=== PATIENT | male | born 1960 | race Caucasian/White ===

== ENCOUNTER 2019-06-05 07:22 | Emergency (ER) | payer OTHER ==
[~2019-06-05] VITALS: Ht 180.3 cm; Wt 88.9 kg
[2019-06-05 07:34] VITALS: Ht 180.3 cm; Wt 88.9 kg
[2019-06-05 08:36] LABS: CALCIUM 8.7 mg/dL (8.5-10.1); CARBON DIOXIDE 24.7 mmol/L (21-32); CHLORIDE SERUM 96 mmol/L (98-107); CREATININE SERUM 1.1 mg/dL (0.7-1.3); GFR1 > 60 mL/min; GLUCOSE SERUM 153 mg/dL (74-106); POTASSIUM SERUM 3.2 mmol/L (3.5-5.1); SODIUM SERUM 135 mmol/L (136-145)
[2019-06-05 08:41] LABS: ALKALINE PHOSPHATASE 113 U/L (46-116); ALT/SGPT 66 U/L (16-63); AST/SGOT 161 U/L (15-37); BILIRUBIN TOTAL 10.03 mg/dL (0.20-1.00); CHOLESTEROL 149 mg/dL (<200); HDL CHOLESTEROL 13 mg/dL (40-60); TOTAL PROTEIN, SERUM 7.8 g/dL (6.4-8.2)
[2019-06-05 08:52] LABS: BASOPHIL % 0.1 % (0-2); PLATELET COUNT 83 x10^3mcL (130-400); RED CELL DISTRIBUTION WIDTH 15.7 % (11.5-14.5)
[2019-06-05 09:27] LABS: microscopic required? NO
[2019-06-05 10:13] LABS: urine erythrocyte NEGATIVE (NEGATIVE)
[2019-06-05 11:20] VITALS: BP 144/79
== END 2019-06-05 11:20 | disposition home or self-care (01) ==
LOC: ED 07:22
PROVIDERS: Emergency Medicine
DX: K74.60 Unspecified cirrhosis of liver (principal); R17 Unspecified jaundice; K62.89 Other specified diseases of anus and rectum; E86.0 Dehydration; E87.6 Hypokalemia; K21.9 Gastro-esophageal reflux disease without esophagitis
CPT/HCPCS: 87804; J7030; Q9967

== ENCOUNTER 2019-08-08 15:39 | Emergency (ER) | payer OTHER ==
[~2019-08-08] VITALS: Ht 180.3 cm; Wt 87.1 kg
[2019-08-08 15:46] VITALS: Ht 180.3 cm; Wt 87.1 kg
[2019-08-08 17:43] LABS: CARBON DIOXIDE 23.5 mmol/L (21-32); CHLORIDE SERUM 106 mmol/L (98-107); CREATININE SERUM 0.8 mg/dL (0.7-1.3); GFR1 > 60 mL/min; GLUCOSE SERUM 154 mg/dL (74-106); POTASSIUM SERUM 4.1 mmol/L (3.5-5.1); SODIUM SERUM 138 mmol/L (136-145)
[2019-08-08 17:48] LABS: ALKALINE PHOSPHATASE 113 U/L (46-116); ALT/SGPT 33 U/L (16-63); AST/SGOT 56 U/L (15-37)
[2019-08-08 17:50] LABS: ALBUMIN 2.3 g/dL (3.4-5.0); TOTAL PROTEIN, SERUM 6.1 g/dL (6.4-8.2)
[2019-08-08 17:54] LABS: BASOPHIL % 0.4 % (0-2); PLATELET COUNT 87 x10^3mcL (130-400); RED CELL DISTRIBUTION WIDTH 15.6 % (11.5-14.5)
[2019-08-08 18:54] VITALS: BP 110/53
[2019-08-10] MEDS ORDERED: HYDROCHLOROTH12.5 M3 (16:44)
[2019-08-10] MEDS ORDERED: PRE15 PO (16:45)
== END 2019-08-08 18:54 | disposition home or self-care (01) ==
LOC: ED 15:39
PROVIDERS: Emergency Medicine
DX: K74.60 Unspecified cirrhosis of liver (principal); D64.9 Anemia, unspecified; K21.9 Gastro-esophageal reflux disease without esophagitis
CPT/HCPCS: 36415; J2001; J7030